=== PATIENT | female | born 1995 | race Caucasian/White ===

== ENCOUNTER 2017-02-04 20:28 | Emergency (ER) ==
[2017-02-04] MEDS ORDERED: ATIVAN ONE (21:20)
[2017-02-04] MEDS ORDERED: ATIVAN IM ONE (21:25)
[2017-02-04] MEDS ORDERED: ZOFRAN IV ONE (21:49)
--- NOTE | 2017-02-04 22:13 | PROVIDER DOCUMENTATION ---
HPI-General Adult - General Source: patient, family - History of Present Illness -Gen Adult Nature of Presenting Problems: PT IS A 21YOF PRESENTING TO THE ED C/O SEIZURES. PTS FAMILY STATES ABOUT 7 MONTHS AGO SHE HAD A SUDDEN ONSET OF SEIZURES, THEY WOULD OCCUR MAYBE 1 A WEEK AND HAVE STEADILY INCREASED IN FREQUENCY. 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 PT HAS HAD 3 TONIC-CLONIC TYPE SEIZURES WITH A PERIOD OF POSTICTLE STATE. NO INCONTINENCE OR OTHER SYMPTOMS AT THIS TIME Location of Pain/Injury: reports: generalized Pain Radiation: reports: no radiation Quality of Pain: reports: dull Severity: reports: moderate Onset/Duration: reports: just prior to arrival Timing: reports: still present, intermittent Context/Activities at Onset: reports: light activity Modifying Factors: improves with: nothing Associated Symptoms: reports: seizure (ACTIVE SEIZURE ACTIVITY UPON EXAM) Similar Symptoms Previously?: Yes Recently seen or treated by another doctor?: No <Wen Fontana - Last Filed: 02/04/17 22:08> <Ole Reece - Last Filed: 02/04/17 23:26> - General Chief Complaint: General Adult Stated Complaint: HIGH BP/POUNDING IN CHEST Time Seen by Provider: 02/04/17 21:30 Allergies/Adverse Reactions: Patient Allergies Allergy/AdvReac Type Severity Reaction Status Date / Time No Known Allergies Allergy Verified 02/04/17 21:04 Home Medications: Home Medication List Medication Instructions Recorded Confirmed Last Taken Type Topiramate [Topamax] 50 mg PO QAM 09/05/16 02/04/17 Unknown History Atenolol 25 mg PO DAILY 01/02/17 02/04/17 Unknown History BENAZEpril [Lotensin] 10 mg PO QAM 02/04/17 02/04/17 Unknown History Citalopram Hydrobromide [Celexa] 20 mg PO QAM 02/04/17 02/04/17 Unknown History Topiramate [Topamax] 100 mg PO QPM 02/04/17 02/04/17 Unknown History Review of Systems - Adult - REVIEW OF SYSTEMS - ADULT Constitutional: reports: no symptoms reported Eyes: reports: no symptoms reported Ears, Nose, Mouth & Throat: reports: no symptoms reported Cardiovascular: reports: no symptoms reported Respiratory: reports: no symptoms reported Gastrointestinal: reports: no symptoms reported Genitourinary: reports: no symptoms reported Musculoskeletal: reports: no symptoms reported Integumentary: reports: no symptoms reported Neurological: reports: see HPI, headache/migraines, seizure. denies: dizziness/ vertigo, numbness Psychiatric: reports: no symptoms reported Endocrine: reports: no symptoms reported Hematologic/Lymphatic: reports: no symptoms reported Allergic/Immunologic: reports: no symptoms reported All Other Systems: Reviewed and Negative <Wen Fontana - Last Filed: 02/04/17 22:08> Past History - Adult - PAST MEDICAL HISTORY-ADULT Review of Records: reports: Old Records Reviewed, Nursing Assessment Review, Medications Reviewed, Social history reviewed & non-contributory. Major Childhood Illnesses: reports: denies history Cardiovascular: reports: HTN Respiratory: reports: denies history Gastrointestinal: reports: denies history Obstetrical/Gynecological: reports: denies history Genitourinary: reports: denies history Musculoskeletal: reports: denies history Neurological: reports: headaches/migraines Endocrine/Immune: reports: denies history Other Conditions: reports: denies history - IMMUNIZATION STATUS Childhood Immunizations: See Nurse Assessment Flu Vaccine: See Nurse Assessment - FAMILY HISTORY Family History: reviewed, not pertinent - SOCIAL HISTORY Smoking: denies, non-smoker Substance Use: none/never, denies Alcohol Use Frequency: never Living Situation: family <Wen Fontana - Last Filed: 02/04/17 22:08> Physical Exam-General - PHYSICAL EXAM-ADULT Initial Vital Signs Reviewed: Yes - CONSTITUTIONAL General Appearance: moderate distress, lethargic. negative: appears well, alert - EYES Eyes: PERRL/EOMI, pink conjunctivae, fundi clear, no AV nicking - HEAD, EARS, NOSE, MOUTH & THROAT HENMT: normocephalic/atraumatic, moist mucous membranes, normal ENT inspection, TMs normal, pharynx normal - NECK Neck: non-tender, full range of motion, supple, normal inspection - RESPIRATORY Respiratory: chest non-tender, lungs clear, normal breath sounds, no pleuratic chest pain, no respiratory distress, no accessory muscle use - CARDIOVASCULAR Cardiovascular: normal peripheral pulses, regular rate, rhythm, no edema, no gallop, no JVD, no murmur - NEUROLOGIC Neurologic: motor weakness, other (PT HAD TONIC CLONIC SEIZURE. CONFUSED AFTERWARDS. NOW AOX3 AGAIN. HAD SOME GENERALIZED WEAKNESS ON EXAM NOTHING FOCAL. ) <Wen Fontana - Last Filed: 02/04/17 22:08> Progress - PLAN OF CARE/RESULTS Progress/Plan/Lab Results: Orders Category Date Time Status Cardiac Monitoring DIRECTED Care 02/04/17 21:27 Active Finger Stick Blood Sugar (ED) DIRECTED Care 02/04/17 21:27 Active Oxygen Therapy- ED Nursing DIRECTED Care 02/04/17 21:27 Active Saline Loc NOW Care 02/04/17 21:27 Active HEAD W/O CONTRAST [CT] Stat Exams 02/04/17 21:28 Taken ALCOHOL BLOOD Stat Lab 02/04/17 22:10 Received CBC WITH ELECTRONIC DIFF [HEME] Stat Lab 02/04/17 22:10 Results COMPREHENSIVE METABOLIC PANEL [CHEM] Stat Lab 02/04/17 22:[address]IME WITH INR [address] [COAG] Stat Lab 02/04/17 22:[address] [COAG] Stat Lab 02/04/17 22:[address] W/POSS RFLX CULT [URINALYSIS] Stat Lab 02/04/17 21:27 Uncollected URINE DRUG SCREEN PL Stat Lab 02/04/17 21:27 Uncollected Lorazepam [Ativan] Med 02/04/17 21:20 Discontinued 2 mg .ROUTE .STK-MED ONE Lorazepam [Ativan] Med 02/04/17 21:25 Discontinued 2 mg IM NOW ONE Ondansetron [Zofran] Med 02/04/17 21:49 Discontinued 4 mg IV NOW ONE Pulse Oximetry Stat Oth 02/04/17 21:27 Active Vital Signs - 24 hr 02/04/17 02/04/17 20:47 21:25 Temperature 98.5 F Pulse Rate 79 104 H Respiratory 18 22 Rate Blood Pressure 163/104 146/94 O2 Sat by Pulse 100 100 Oximetry <Wen Fontana - Last Filed: 02/04/17 22:08> Departure <Wen Fontana - Last Filed: 02/04/17 22:08> - Departure Time of Disposition Order: 23:25 Certified Medical Emergency: Emergent <Ole Reece - Last Filed: 02/04/17 23:26> - Departure DIAGNOSIS: Seizure Disposition: HOME 01 Condition: Stable Additional Instructions: Increase Topimax as discussed. Call the neurologist in the morning to schedule follow up appointment. ED Follow Up Instructions: You have been treated by a care provider in the Emergency Department. These instructions are being provided to you so you can have an understanding of how to care for yourself upon discharge. Upon discharge from the Emergency Department, you are responsible for making arrangements for follow-up care by a physician of your choice. Take all prescribed medications as directed. Return to the Emergency Department immediately for any new or worsening symptoms. You may call the Physician Referral phone number at [phone] to obtain a list of Physicians who are taking new patients. Referrals: Ronald Miller MD [Primary Care Provider] - Attestation - Scribe Verification/Attestation Scribe:: Wen Fontana Acting as Scribe for:: Ole Reece Scribe documention review:: This chart was documented by a scribe and accurately reflects the service the provider performed and the decisions made by the provider. <Wen Fontana - Last Filed: 02/04/17 22:08> Physician Attestation - Physician Attestation I, the provider, attest to the following statement:: Rufino Blount Physician documentation Attestation:: This documentation recorded by the scribe accurately reflects the service I personally performed and the decisions made by me. <Wen Fontana - Last Filed: 02/04/17 22:08>
[2017-02-04 22:22] LABS: MANUAL DIFF NEEDED? NO
[2017-02-04 22:24] LABS: BASO% 0.3 % (0.0-0.8); EOS# 0.08 X1000 (0.0-0.7); EOS% 1.1 % (0.0-10.0); HEMATOCRIT 37.9 % (37.0-47.0); HEMOGLOBIN 12.6 g/dL (12.0-16.0); IMM GRAN# 0.01 X1000 (0.0-0.04); IMM GRAN% 0.1 % (0.0-0.5); LYMPH# 2.05 X1000 (1.2-3.4); LYMPH% 29.5 % (20.5-51.1); MCH 27.2 PG (27-31); MCHC 33.2 g/dL (33-37); MCV 81.9 FL (81-99); MONO# 0.73 X1000 (0.11-0.59); MONO% 10.5 % (1.7-9.3); MPV 10.1 FL (7.4-10.4); NEUT% 58.5 % (42.2-75.2); PLT 268 X1000 (130-400); RBC 4.63 XMIL (4.2-5.4)
[2017-02-04 22:45] LABS: INR 1.07 (0.86-1.15); PROTIME 14.2 Seconds (12.1-15.5); PTT PL 28.6 Seconds (22.6-43.9)
[2017-02-04 22:46] LABS: AGAP 11; ALBUMIN 3.9 g/dL (3.5-5.0); ALKALINE PHOSPHATASE 45 U/L (32-104); BUN 13 mg/dL (8-22); CALCIUM 8.9 mg/dL (8.8-10.2); CHLORIDE 102 mmol/L (98-107); COSMO 267; GOT 11 U/L (10-30); GPT 11 U/L (10-36); POTASSIUM 3.8 mmol/L (3.5-5.1); SODIUM 133 mmol/L (136-145); TCO2 21 mmol/L (25-35); TOTAL PROTEIN 6.7 g/dL (6.3-8.3)
[2017-02-04 23:48] VITALS: BP 142/089
--- NOTE | 2017-02-05 08:18 | Diag Imaging Result Document ---
PROCEDURE NAME: HEAD W/O CONTRAST - 02/04/[address]: COMPARISON: 01/02/2017. FINDINGS: The ventricles and sulci are normal in size and contour. There is no mass, hemorrhage, or evidence of acute ischemia. The bony calvaria is intact. The visualized paranasal sinuses and mastoid air cells are clear. IMPRESSION: Negative head CT.
== END 2017-02-04 23:46 | disposition home or self-care (01) ==
LOC: P.ED 20:28
DX: R56.9 Unspecified convulsions (principal); R51 Headache; R53.83 Other fatigue; R41.0 Disorientation, unspecified; R53.1 Weakness; I10 Essential (primary) hypertension; Z79.899 Other long term (current) drug therapy
CPT/HCPCS: 70450; 80053; 85025; 85610; 85730; 96372; G0480; J2060; 80320